=== PATIENT | female | born 1965 | race Caucasian/White ===

== ENCOUNTER → 2023-12-20 13:42 | Outpatient (REF) | payer OTHER, SELFPAY | LOC: PAVMRI 13:42 | PROVIDERS: ATTENDING PHYSICIAN Orthopaedic Surgery | DX: M25.561 Pain in right knee (principal) | CPT/HCPCS: 73721 ==

== ENCOUNTER → 2025-04-06 12:27 | Outpatient (REF) | payer OTHER, SELFPAY | LOC: RAD 12:27 | PROVIDERS: ATTENDING PHYSICIAN Family Medicine | DX: M54.2 Cervicalgia (principal) | CPT/HCPCS: 72040 ==

== ENCOUNTER → 2025-05-08 11:33 | Outpatient (REF) | payer OTHER, SELFPAY | LOC: WDC 11:33 | PROVIDERS: ATTENDING PHYSICIAN Family Medicine | DX: Z12.31 Encounter for screening mammogram for malignant neoplasm of breast (principal) | CPT/HCPCS: 77063; 77067 ==

== ENCOUNTER → 2025-06-06 10:50 | Outpatient (REF) | payer OTHER, SELFPAY | LOC: RAD 10:50 | PROVIDERS: ATTENDING PHYSICIAN Family Medicine | DX: K90.0 Celiac disease (principal); Z78.0 Asymptomatic menopausal state | CPT/HCPCS: 77080 ==